=== PATIENT | female | born 1960 ===

== ENCOUNTER 2019-06-22 04:37 | Day surgery (SDC) | payer OTHER ==
[~2019-06-22 04:37] MED LIST: NEURIN SL; TICOR PO; VALSARTAN80 MG PO
[2019-06-22] MEDS ORDERED: IBUPROFEN400 MG PO (08:36)
== END 2019-06-22 12:45 | disposition home or self-care (01) ==
LOC: CIR.AMB 04:37
DX: N84.0 Polyp of corpus uteri (principal)